=== PATIENT | male | born 1940 | race African-American/Black ===

== ENCOUNTER → 2019-01-09 | Outpatient (CLI) | payer MEDICARE ==
[2019-01-09 10:45] LABS: ANION GAP 10 (5-19); BLOOD UREA NITROGEN 34 mg/dL (7-20); CALCIUM 9.6 mg/dL (8.4-10.2); CARBON DIOXIDE 25 mmol/L (22-30); CHLORIDE 107 mmol/L (98-107); GLUCOSE 94 mg/dL (75-110); POTASSIUM 4.1 mmol/L (3.6-5.0)
== END ==
LOC: LAB 09:56
PROVIDERS: ATTEND Internal Medicine Cardiovascular Disease
DX: I50.22 Chronic systolic (congestive) heart failure (principal)
CPT/HCPCS: 36415; 80048; 83880

== ENCOUNTER → 2019-02-01 | Outpatient (CLI) | payer MEDICARE ==
[2019-02-01 09:35] LABS: ANION GAP 10 (5-19); BLOOD UREA NITROGEN 29 mg/dL (7-20); CALCIUM 9.1 mg/dL (8.4-10.2); CARBON DIOXIDE 27 mmol/L (22-30); CHLORIDE 105 mmol/L (98-107); GLUCOSE 87 mg/dL (75-110); POTASSIUM 3.9 mmol/L (3.6-5.0)
== END ==
LOC: LAB 08:52
PROVIDERS: ATTEND Internal Medicine Cardiovascular Disease
DX: I50.22 Chronic systolic (congestive) heart failure (principal); N18.3 Chronic kidney disease, stage 3 (moderate)
CPT/HCPCS: 36415; 80048; 83880

== ENCOUNTER 2019-02-07 16:46 | Emergency (ER) | payer MEDICARE ==
--- NOTE | 2019-02-07 17:26 | ER Document Report ---
ED General - General Chief Complaint: Chest Pain Stated Complaint: CHEST PAIN Time Seen by Provider: 02/07/19 17:12 Primary Care Provider: ALEX MAYA MD [EMERITUS] - Follow up in 3-5 days TRAVEL OUTSIDE OF THE [place] IN LAST 30 DAYS: No - HPI Notes: 78-year-old male with known history of heart failure, biventricular pacer, presents in referral from his local cardiology office with possible A. fib RVR. Patient is not felt well for the last several months, had a routine appointment with his cardiology provider, was noted in the office apparently have had some episodes of A. fib with RVR. He presents here with his . Denies any new medication changes. Moderate intensity, gradual onset, nonradiating. Some poorly described unplanned weight loss. No active chest pain. Chronic dyspnea. Mild orthopnea. No other modifying factors, no other associated symptoms, no other provocative or palliative factors. - Related Data Allergies/Adverse Reactions: No Known Allergies Allergy (Unverified 02/07/19 17:52) Past Medical History - General Information source: Patient, Relative - Social History Smoking Status: Smoker,Current Status Unk Family History: Reviewed & Not Pertinent - Medical History Notes: Includes biventricular pacer, hypertension, heart failure, A. fib Review of Systems - Review of Systems Notes: Review of systems as in the history of present illness, otherwise negative x 10 systems. Physical Exam - Vital signs Vitals: Resp Pulse Ox 33 H 98 02/07/19 17:06 02/07/19 17:06 - Notes Notes: General: Well developed . [place] ill in appearance HEENT: Normocephalic, atraumatic. Pupils equal round reactive to light. No JVD. Chest: No trauma. Respiratory: Good air exchange, normal excursion. Minimal basilar crackles Cardiac: Regular rhythm. No murmurs or gallops. Abdomen: Soft, benign. Nondistended. Nontender. Back: No asymmetry or gross abnormality. Motor: Grossly normal power and tone. Neurologic: Alert, nonfocal. Cranial nerves II-12 are intact. Sensation intact. Vascular: Well perfused. Normal peripheral pulses. Skin: No petechiae or purpura. Extremities: 1+ pedal edema Course - Re-evaluation Re-evalutation: 02/07/19 17:25 Elderly male presents the after mentioned symptoms. Currently not in A. fib RVR. He is in a hybrid rhythm which at times has complete ventricular pacing and other times has atrial pacing and intermittent pacing they are in. Broad differential diagnosis includes underlying cardiac, metabolic, infectious or other etiologies. Will check chest x-ray, EKG, labs, electrolytes, she will exams and reevaluate. 02/07/19 21:48 Labs reviewed, CBC unremarkable, chemistries unremarkable except for chronic renal insufficiency. proBNP elevated but likely chronic. Troponin normal. Chest x-ray shows no acute pulmonary edema. Patient is largely been in a controlled rate and atrial or AV paced rhythm. He had one episode of rapid ventricular response at 120 lasted less than 5 minutes. Patient has a oxygen saturation of 90% on room air, not requiring supplemental oxygen, no increased work of breathing, his respiratory rate when I evaluated him and 16. Case discussed with who is the patient's plaster block layer. We discussed his current medication regimen, actually saw him today. Patient is going to receive IV Toprol, he is watched for over an hour in the ED and is tolerating this very well. We have increased his metoprolol succinate dose to 100 mg a day, prescription is given, will follow up with his plaster block layer. - Vital Signs Vital signs: Temp Pulse Resp BP Pulse Ox 24 H 145/98 H 93 02/07/19 19:30 02/07/19 19:30 02/07/19 19:30 - Laboratory Result Diagrams: 02/07/19 17:17 02/07/19 17:17 Laboratory results interpreted by me: 02/07/19 02/07/19 02/07/19 17:17 17:17 17:17 WBC 3.3 L RDW 16.4 H Plt Count 145 L Absolute Neuts (auto) 1.5 L BUN 31 H Creatinine 1.56 H Est GFR ( Amer) 52 L Est GFR (MDRD) Non-Af 43 L NT-Pro-B Natriuret Pep 73645 H TSH Urine Protein Urine Ketones Urine Bilirubin Urine Urobilinogen Ur Leukocyte Esterase 02/07/19 02/07/19 17:17 18:14 WBC RDW Plt Count Absolute Neuts (auto) BUN Creatinine Est GFR ( Amer) Est GFR (MDRD) Non-Af NT-Pro-B Natriuret Pep TSH 5.07 H Urine Protein 100 H Urine Ketones 20 H Urine Bilirubin SMALL H Urine Urobilinogen 4.0 H Ur Leukocyte Esterase TRACE H - EKG Interpretation by Me Rate: Tachycardia Rhythm: A.Fib Voltage: Consistant with LVH P Waves: Absent Heart block present: No: CHB (3rd degree block) Discharge - Discharge Clinical Impression: Atrial fibrillation Qualifiers: Atrial fibrillation type: chronic Qualified Code(s): I48.2 - Chronic atrial fibrillation Condition: Stable Disposition: HOME, SELF-CARE Instructions: Atrial Fibrillation ([facility]) Additional Instructions: Until you get your new prescription filled, you can take to 50 mg metoprolol succinate tablets in the morning. Prescriptions: Metoprolol Succinate [Toprol Xl] 100 mg PO DAILY #30 tab.er.24h Referrals: ALEX MAYA MD [EMERITUS] - Follow up in 3-5 days
[2019-02-07 17:39] LABS: ABSOLUTE EOSINOPHILS # (AUTO) 0.2 10^3/uL (0.0-0.6); ABSOLUTE LYMPHOCYTES (AUTO) 1.2 10^3/uL (0.5-4.7); ABSOLUTE MONOCYTES (AUTO) 0.3 10^3/uL (0.1-1.4); ABSOLUTE NEUT (AUTO) 1.5 10^3/uL (1.7-8.2); BASOPHILS % (AUTO) 0.8 % (0-2); EOSINOPHILS % (AUTO) 5.3 % (0-6); HEMATOCRIT 43.6 % (37.9-51.0); HEMOGLOBIN 14.4 g/dL (13.5-17.0); LYMPHOCYTES % (AUTO) 37.9 % (13-45); MEAN CORPUSCULAR HEMOGLOBIN 30.6 pg (27.0-33.4); MEAN CORPUSCULAR HGB CONC 33.1 g/dL (32.0-36.0); MEAN CORPUSCULAR VOLUME 92 fl (80-97); MONOCYTES % (AUTO) 10.4 % (3-13); PLATELET COUNT 145 10^3/uL (150-450); RED BLOOD COUNT 4.72 10^6/uL (4.35-5.55); RED CELL DISTRIBUTION WIDTH 16.4 % (11.5-14.0); SEGMENTED NEUTROPHILS % (AUTO) 45.6 % (42-78); TOTAL CELLS COUNTED % (AUTO) 100 %; WHITE BLOOD COUNT 3.3 10^3/uL (4.0-10.5)
[2019-02-07 17:55] LABS: INTERNATIONAL RATION (INR) 1.17
[2019-02-07 18:04] LABS: ANION GAP 8 (5-19); BLOOD UREA NITROGEN 31 mg/dL (7-20); CALCIUM 9.2 mg/dL (8.4-10.2); CARBON DIOXIDE 26 mmol/L (22-30); CHLORIDE 107 mmol/L (98-107); GLUCOSE 90 mg/dL (75-110); POTASSIUM 3.6 mmol/L (3.6-5.0)
--- NOTE | 2019-02-07 18:10 | RADIOLOGY REPORT (SQ) ---
EXAM DESCRIPTION: CHEST SINGLE VIEW COMPLETED DATE/TIME: 02/07/2019 5:48 pm REASON FOR STUDY: Dyspnea COMPARISON: 12/15/2018 EXAM PARAMETERS: NUMBER OF VIEWS: One view. TECHNIQUE: Single frontal radiographic view of the chest acquired. RADIATION DOSE: NA LIMITATIONS: None. FINDINGS: LUNGS AND PLEURA: Interstitial lung disease unchanged. No acute opacities. MEDIASTINUM AND HILAR STRUCTURES: No masses. Contour normal. HEART AND VASCULAR STRUCTURES: Heart normal in size. Normal vasculature. BONES: No acute findings. HARDWARE: Pacemaker unchanged. OTHER: No other significant finding. IMPRESSION: Stable interstitial lung disease. TECHNICAL DOCUMENTATION: JOB ID: [id number] [employer]- All Rights Reserved Reading location - IP/workstation name: [email or web address]
[2019-02-07 18:16] LABS: TROPONIN I 0.023 ng/mL
[2019-02-07 18:30] LABS: APPEARANCE,URINE SLIGHTLY-CLOUDY; BILIRUBIN,URINE SMALL (NEGATIVE); COLOR,URINE AMBER; GLUCOSE, URINE NEGATIVE (NEGATIVE); KETONES,URINE 20 mg/dL (NEGATIVE); LEUKOCYTE ESTERASE,URINE TRACE (NEGATIVE); NITRITE,URINE NEGATIVE (NEGATIVE); PROTEIN,URINE 100 mg/dL (NEGATIVE); URINE SPECIFIC GRAVITY 1.028
[2019-02-07] MEDS ORDERED: METOPROLOL TARTRATE PF/INJ 5 MG/5 ML SDV IV ONE (19:48)
[2019-02-07 19:56] VITALS: BP 145/98
--- NOTE | 2019-02-08 11:18 | EKG REPORT ---
SEVERITY:- ABNORMAL ECG - ATRIAL-PACED COMPLEXES ANTERIOR INFARCT, AGE INDETERMINATE : Confirmed by: Stephenie Villanueva 08-Feb-2019 11:17:55
--- NOTE | 2019-02-08 11:18 | EKG REPORT ---
SEVERITY:- ABNORMAL ECG - ATRIAL-PACED COMPLEXES LVH WITH SECONDARY REPOLARIZATION ABNORMALITY : Confirmed by: Stephenie Villanueva 08-Feb-2019 11:17:45
== END 2019-02-07 21:16 | disposition home or self-care (01) ==
LOC: ER 16:46
DX: I48.2 Chronic atrial fibrillation (principal); Z79.899 Other long term (current) drug therapy; R00.0 Tachycardia, unspecified; R63.4 Abnormal weight loss; R06.01 Orthopnea; R60.0 Localized edema; I12.9 Hypertensive chronic kidney disease with stage 1 through stage 4 chronic kidney disease, or unspecified chronic kidney disease; N18.9 Chronic kidney disease, unspecified; Z95.0 Presence of cardiac pacemaker
CPT/HCPCS: 93005; 99285; 96374; 36415; 83735; 84443; 85025; 85610; 80048; 81001; 84484; 83880; 71045; 93010; J3490

== ENCOUNTER 2019-02-09 10:45 | Emergency (ER) | payer MEDICARE ==
[2019-02-09 11:32] LABS: HEMATOCRIT 42.6 % (37.9-51.0); HEMOGLOBIN 14.4 g/dL (13.5-17.0); MEAN CORPUSCULAR HEMOGLOBIN 30.9 pg (27.0-33.4); MEAN CORPUSCULAR HGB CONC 33.8 g/dL (32.0-36.0); MEAN CORPUSCULAR VOLUME 91 fl (80-97); PLATELET COUNT 141 10^3/uL (150-450); RED BLOOD COUNT 4.66 10^6/uL (4.35-5.55); RED CELL DISTRIBUTION WIDTH 15.9 % (11.5-14.0); WHITE BLOOD COUNT 3.2 10^3/uL (4.0-10.5)
--- NOTE | 2019-02-09 11:40 | RADIOLOGY REPORT (SQ) ---
EXAM DESCRIPTION: CHEST SINGLE VIEW COMPLETED DATE/TIME: 02/09/2019 11:28 am REASON FOR STUDY: t1 db COMPARISON: 02/07/2019, 12/15/2018 EXAM PARAMETERS: NUMBER OF VIEWS: One view. TECHNIQUE: Single frontal radiographic view of the chest acquired. RADIATION DOSE: NA LIMITATIONS: None. FINDINGS: LUNGS AND PLEURA: There is somewhat coarse interstitial and fine nodular pulmonary opacity unchanged from prior examination. No new airspace opacity. MEDIASTINUM AND HILAR STRUCTURES: No masses. Contour normal. HEART AND VASCULAR STRUCTURES: Cardiomegaly with left chest multi lead pacer. BONES: No acute findings. HARDWARE: None in the chest. OTHER: No other significant finding. IMPRESSION: 1. There is somewhat coarse interstitial and fine nodular pulmonary opacity unchanged fr om prior examination. This is of uncertain nature and may reflect edema superimposed upon underlying emphysema or interstitial lung disease. CT may be used to further evaluate if desired. No new airs pace opacity. 2. Cardiomegaly. TECHNICAL DOCUMENTATION: JOB ID: [id number] [employer]- All Rights Reserved Reading location - IP/workstation name: [email or web address]
[2019-02-09 11:56] LABS: ALBUMIN 3.2 g/dL (3.5-5.0); ALKALINE PHOSPHATASE 77 U/L (38-126); ANION GAP 9 (5-19); ASPARTATE AMINO TRANSFERASE 28 U/L (17-59); BILIRUBIN,DIRECT 0.3 mg/dL (0.0-0.4); BILIRUBIN,TOTAL 0.7 mg/dL (0.2-1.3); BLOOD UREA NITROGEN 28 mg/dL (7-20); CALCIUM 8.6 mg/dL (8.4-10.2); CARBON DIOXIDE 29 mmol/L (22-30); CHLORIDE 104 mmol/L (98-107); CREATINE KINASE 65 U/L (55-170); GLUCOSE 134 mg/dL (75-110); POTASSIUM 3.2 mmol/L (3.6-5.0); TOTAL PROTEIN 6.3 g/dL (6.3-8.2)
--- NOTE | 2019-02-09 12:06 | ER Document Report ---
ED General - General Chief Complaint: Shortness Of Breath Stated Complaint: TROUBLE BREATHING Time Seen by Provider: 02/09/19 11:10 Primary Care Provider: SATISH COLORADO PA [Primary Care Provider] - Follow up as needed TRAVEL OUTSIDE OF THE [place] IN LAST 30 DAYS: No - HPI Notes: Patient is a 78-year-old male presents emergency department for evaluation of weakness, lethargy, abnormal vital signs. The patient has a history of heart failure, sees Dr. Wade. He was seen for checkup on Wednesday. He was found to have multiple bouts of atrial fibrillation. He was sent here to the emergency department for evaluation, according to the with the plan of transporting him to [facility]. He was evaluated here, the ED physician and the grape cutter consulted, the patient was started on increased metoprolol. Patient's states that he is just been very tired. He has been so weak he has been falling. She states he fell last night she did not witness it. She states this morning he was very lethargic, she found his blood pressure to be in the 70s, so she presents to the emergency department with him here for further evaluation. - Related Data Allergies/Adverse Reactions: No Known Allergies Allergy (Unverified 02/07/19 17:52) Home Medications: Entresto, torsemide, metoprolol, pravastatin Past Medical History - General Information source: Patient, Relative - Social History Smoking Status: Never Smoker Family History: Reviewed & Not Pertinent Patient has suicidal ideation: No Patient has homicidal ideation: No - Past Medical History Cardiac Medical History: Reports: Hx Atrial Fibrillation, Hx Congestive Heart Failure, Hx Hypercholesterolemia, Hx Hypertension Past Surgical History: Reports: Hx Cardiac Surgery - pacemaker Review of Systems - Review of Systems Constitutional: See HPI EENT: No symptoms reported Cardiovascular: See HPI Gastrointestinal: No symptoms reported Genitourinary: No symptoms reported Musculoskeletal: No symptoms reported Skin: No symptoms reported Neurological/Psychological: No symptoms reported Physical Exam - Vital signs Vitals: Resp 31 H 02/09/19 10:56 - Notes Notes: This is a 78-year-old male who appears stated age in no acute distress. He has a GCS of 14 but opens his eyes to verbal stimuli. Vital signs reviewed, please refer to chart. Head is normocephalic, atraumatic. Pupils equal round, reactive to light. Neck is supple without meningismus. Heart is regular rate and rhythm. Lungs veal coarse breath sounds throughout but no wheezes. Abdomen is soft, nontender, normoactive bowel sounds throughout. Extremities without cyanosis, clubbing. Posterior calves are nontender. Peripheral pulses are equal. Skin is warm and dry. Course - Re-evaluation Re-evalutation: 02/09/19 12:06 Patient presents to the emergency department for evaluation of weakness and increased lethargy, abnormal vital signs. He was placed on a engineering systems analyst, oxygen at 2 L per nasal cannula as this is home oxygen. Laboratory investigations and imaging were obtained. EKG obtained as well. Because of his low blood pressure I am concerned also about the possibility of an infectious etiology to this patient's lethargy. I did add blood cultures and urinalysis to the normal cardiac work-up. Patient is currently stable at this time with a heart rate in the 80s and blood pressure 124/90. We will continue to monitor. 02/09/19 18:[address] Wade about this patient. Evidently the patient has an EF of 20%. He has been treating this patient for the last several months since he mov ed from [facility]. Dr. Wade that he is maxed him out on Entresto. Recently he was in rapid atrial fibrillation. Medication doses were changed, but given the frailty of his heart, Dr. Wade is concerned that the patient requires much more intensive treatment and it is available in the critical access hospital hospital. He recommends transfer to heart failure center. I spoke with Dr. Yeung, grape cutter at [facility], who happily excepted the patient. We will go ahead and continue the Entresto, give IV Lasix in addition to his regular torsemide, and await a bed at [facility]. 02/09/19 19:33 - Vital Signs Vital signs: Temp Pulse Resp BP Pulse Ox 97.5 F 22 H 124/91 H 100 02/09/19 13:09 02/09/19 18:01 02/09/19 18:01 02/09/19 18:01 - Laboratory Result Diagrams: 02/09/19 11:10 02/09/19 11:10 Laboratory results interpreted by me: 02/09/19 02/09/19 02/09/19 11:10 11:10 13:12 WBC 3.2 L RDW 15.9 H Plt Count 141 L Seg Neuts % (Manual) 39 L Eosinophils % (Manual) 10 H Abs Neuts (Manual) 1.2 L ABG pO2 ABG HCO3 ABG Total CO2 ABG O2 Saturation Potassium 3.2 L BUN 28 H Creatinine 1.52 H Est GFR ( Amer) 54 L Est GFR (MDRD) Non-Af 45 L Glucose 134 H NT-Pro-B Natriuret Pep Albumin 3.2 L Urine Protein Urine Blood SMALL H Urine Urobilinogen 4.0 H Ur Leukocyte Esterase SMALL H 02/09/19 02/09/19 02/09/19 14:04 17:33 18:24 WBC RDW Plt Count Seg Neuts % (Manual) Eosinophils % (Manual) Abs Neuts (Manual) ABG pO2 122.9 H ABG HCO3 26.3 H ABG Total CO2 27.7 H ABG O2 Saturation 98.4 H Potassium BUN Creatinine Est GFR ( Amer) Est GFR (MDRD) Non-Af Glucose NT-Pro-B Natriuret Pep 52057 H Albumin Urine Protein 30 H Urine Blood Urine Urobilinogen 4.0 H Ur Leukocyte Esterase SMALL H - Diagnostic Test Radiology reviewed: Reports reviewed Radiology results interpreted by me: 02/09/19 19:34 Chest X-Ray 02/09/19 10:57 IMPRESSION: 1. There is somewhat coarse interstitial and fine nodular pulmonary opacity unchanged from prior examination. This is of uncertain nature and may reflect edema superimposed upon underlying emphysema or interstitial lung disease. CT may be used to further evaluate if desired. No new airspace opacity. 2. Cardiomegaly. Head CT 02/09/19 12:04 IMPRESSION: No acute intracranial pathology. EVIDENCE OF ACUTE STROKE: NO. - EKG Interpretation by Me Additional EKG results interpreted by me: 02/09/19 19:34 Atrial paced at 70 bpm. Left axis deviation. IVCD. Nonspecific ST changes, T wave inversions anterolaterally concerning for possible ischemia. No significant change in compared to prior study. Discharge - Discharge Clinical Impression: Congestive heart failure Condition: Stable Disposition: [facility] Admitting Provider: Dr. Yeung Referrals: SATISH COLORADO PA [Primary Care Provider] - Follow up as needed
[2019-02-09 12:09] LABS: CREATINE KINASE MB 0.29 ng/mL (<4.55); TROPONIN I 0.018 ng/mL
[2019-02-09 12:23] LABS: ABSOLUTE LYMPHOCYTES# (MANUAL) 1.2 10^3/uL (0.5-4.7); ABSOLUTE MONOCYTES # (MANUAL) 0.4 10^3/uL (0.1-1.4); BASOPHILS % (MANUAL) 1 % (0-2); EOSINOPHILS % (MANUAL) 10 % (0-6); LYMPHOCYTES % (MANUAL) 39 % (13-45); MONOCYTES % (MANUAL) 11 % (3-13); SEGMENTED NEUTROPHILS % (MAN) 39 % (42-78); TOTAL CELLS COUNTED 100
[2019-02-09 12:25] LABS: ANISOCYTOSIS SLIGHT; OVALOCYTES 1+; PLATELET COMMENT DECREASED; POIKILOCYTOSIS SLIGHT
[2019-02-09 13:31] LABS: APPEARANCE,URINE CLEAR; BILIRUBIN,URINE NEGATIVE (NEGATIVE); COLOR,URINE YELLOW; GLUCOSE, URINE NEGATIVE (NEGATIVE); KETONES,URINE NEGATIVE (NEGATIVE); LEUKOCYTE ESTERASE,URINE SMALL (NEGATIVE); NITRITE,URINE NEGATIVE (NEGATIVE); PROTEIN,URINE NEGATIVE (NEGATIVE); URINE SPECIFIC GRAVITY 1.015
--- NOTE | 2019-02-09 14:14 | RADIOLOGY REPORT (SQ) ---
EXAM DESCRIPTION: CT HEAD WITHOUT COMPLETED DATE/TIME: 02/09/2019 1:57 pm REASON FOR STUDY: fall COMPARISON: None. TECHNIQUE: Axial images acquired through the brain without intravenous contrast. Images reviewed wi th bone, brain and subdural windows. Additional sagittal and coronal reconstructions were generated. Images stored on PACS. All CT scanners at this facility use dose modulation, iterative reconstruction, and/or weight based d osing when appropriate to reduce radiation dose to as low as reasonably achievable (ALARA). [facility]: Dose Right [facility]: CareDose [facility]: Dose Right [facility]: Teradose 4D [facility]: [employer] RADIATION DOSE: CT Rad equipment meets quality standard of care and radiation dose reduction techniq ues were employed. CTDIvol: 53.2 mGy. DLP: 1044 mGy-cm. mGy. LIMITATIONS: None. FINDINGS: VENTRICLES: Normal size and contour. CEREBRUM: No masses. No hemorrhage. No midline shift. No evidence for acute infarction. Few scatte red areas of low density in the white matter most likely chronic small vessel ischemic changes. CEREBELLUM: No masses. No hemorrhage. No alteration of density. No evidence for acute infarction. EXTRAAXIAL SPACES: No fluid collections. No masses. ORBITS AND GLOBE: No intra- or extraconal masses. Normal contour of globe without masses. CALVARIUM: No fracture. PARANASAL SINUSES: No fluid or mucosal thickening. SOFT TISSUES: No mass or hematoma. OTHER: No other significant finding. IMPRESSION: No acute intracranial pathology. EVIDENCE OF ACUTE STROKE: NO. COMMENT: Quality ID # [id number]: Final reports with documentation of one or more dose reduction techniques (e.g., Automated exposure control, adjustment of the mA and/or kV according to patient size, use of iterative reconstruction technique) TECHNICAL DOCUMENTATION: JOB ID: [id number] [employer]- All Rights Reserved Reading location - IP/workstation name: [email or web address]
[2019-02-09] MEDS ORDERED: POTASSIUM CHLORIDE 10 MEQ CAPSULE.ER PO ONE (17:14)
[2019-02-09 17:48] LABS: APPEARANCE,URINE SLIGHTLY-CLOUDY; BILIRUBIN,URINE NEGATIVE (NEGATIVE); COLOR,URINE YELLOW; GLUCOSE, URINE NEGATIVE (NEGATIVE); KETONES,URINE NEGATIVE (NEGATIVE); LEUKOCYTE ESTERASE,URINE SMALL (NEGATIVE); NITRITE,URINE NEGATIVE (NEGATIVE); PROTEIN,URINE 30 mg/dL (NEGATIVE); URINE SPECIFIC GRAVITY 1.021
[2019-02-09] MEDS ORDERED: FUROSEMIDE INJ/PF 40 MG/4 ML SDV IV ONE (18:48)
[2019-02-09 19:09] LABS: ARTERIAL BLOOD BASE EXCESS 1.4 mmol/L; ARTERIAL BLOOD H2CO3 1.29 mmol/L (1.05-1.35); ARTERIAL BLOOD HCO3 26.3 mmol/L (20-24); ARTERIAL BLOOD O2 SATURATION 98.4 % (94-98); ARTERIAL BLOOD PCO2 42.9 mmHg (35-45); ARTERIAL BLOOD PH 7.41 (7.35-7.45); ARTERIAL BLOOD PO2 122.9 mmHg (80-100); ARTERIAL BLOOD TOTAL CO2 27.7 mmol/L (23-27)
[2019-02-09 19:10] LABS: ARTERIAL BLOOD FIO2 2L
[2019-02-09] MEDS ORDERED: NITROGLYCERIN 0.4 MG/TAB 25 TAB/BOTTLE SL PRN (20:28)
[2019-02-09] MEDS ORDERED: SACUBITRIL/VALSARTAN 97 MG/103 MG TABLET PO SCH (22:00)
[2019-02-09 22:27] VITALS: BP 111/81
[2019-02-10] MEDS ORDERED: ASPIRIN 81 MG TABLET, CHEWABLE PO SCH (10:00)
[2019-02-10] MEDS ORDERED: METOPROLOL SUCCINATE 50 MG TAB.SR.24H PO SCH (10:00)
[2019-02-10] MEDS ORDERED: TORSEMIDE 20 MG TABLET PO SCH (10:00)
[2019-02-10] MEDS ORDERED: TORSEMIDE 10 MG PO SCH (10:00)
[2019-02-10] MEDS ORDERED: ATORVASTATIN CALCIUM 40 MG TABLET PO SCH (22:00)
--- NOTE | 2019-02-11 08:51 | EKG REPORT ---
SEVERITY:- ABNORMAL ECG - ATRIAL-VENTRICULAR DUAL-PACED COMPLEXES FUSION BEATS NOTED : Confirmed by: Stephenie Villanueva 11-Feb-2019 08:51:08
--- NOTE | 2019-02-11 08:51 | EKG REPORT ---
SEVERITY:- ABNORMAL ECG - ATRIAL-PACED RHYTHM LVH WITH SECONDARY REPOLARIZATION ABNORMALITY ANTERIOR INFARCT, AGE INDETERMINATE : Confirmed by: Stephenie Villanueva 11-Feb-2019 08:51:17
== END 2019-02-09 22:42 | disposition short-term general hospital (02) ==
LOC: ER 10:45
DX: I11.0 Hypertensive heart disease with heart failure (principal); I50.9 Heart failure, unspecified; R53.1 Weakness; I48.91 Unspecified atrial fibrillation; R53.83 Other fatigue; E78.00 Pure hypercholesterolemia, unspecified; Z91.81 History of falling; Z79.899 Other long term (current) drug therapy; Z95.0 Presence of cardiac pacemaker
CPT/HCPCS: 93005; 99285; 96374; 36415; 87040; 87086; 82553; 82803; 82550; 83735; 85025; 87088; 80053; 81001; 84484; 83880; 71045; 70450; 93010; J1940; A9270